=== PATIENT | male | born 1955 | race Caucasian/White ===

== ENCOUNTER → 2017-10-28 | Day surgery (SDC) | payer OTHER ==
[2017-10-21 07:42] VITALS: Ht 180.3 cm; Wt 109.1 kg
--- NOTE | 2017-10-26 09:24 | History and Physical: Surg Cnt ---
History & Physical Date Oct 26, 2017. Chief Complaint ulceration right ear History of Present Illness The patient is a 61 year old male with complaints of non healing ulceration of helix of right ear Past Medical/Surgical History Medical Problems: (1) Altered mental status (2) Depression (3) GERD (gastroesophageal reflux disease) (4) HTN (hypertension) (5) Hyponatremia (6) Seizure disorder Surgical Problems: (1) Previous back surgery Additional History Hepatic Disease: No Endocrine Disorder: No Kidney Disease: Yes Hypertension: Yes Heart Disease: No Bleeding Tendencies: No Infectious Diseases: No Allergies Coded Allergies: Penicillins (Verified Allergy, Severe, ANAPHYLAXIS, 10/21/17) Hydrochlorothiazide (Verified Adverse Reaction, Unknown, HYPONATREMIA, ) Home Medications Scheduled Amlodipine (Norvasc), 5 MG PO QAM Buspirone Hcl (Buspirone Hcl), 10 MG PO QPM Buspirone Hcl (Buspar), 15 MG PO QAM Calcium Carbonate (Calcium Carbonate), 1 TAB PO BID Carvedilol (Coreg), 12.5 MG PO BID Divalproex Sodium (Depakote), 1 TAB PO QAM Doxepin Hcl (Doxepin), 100 MG PO QPM Magnesium Oxide (Mag-Ox), 400 MG PO BID Meloxicam (Mobic), 15 MG PO QAM Metoprolol Tartrate (Lopressor) (Lopressor), 50 MG PO BID Pantoprazole (Protonix), 20 MG PO BID Polyethylene Glycol 3350 (Glycolax), 17 GM PO DAILY Pravastatin Sod (Pravastatin Sodium), 1 TAB PO QPM Triamcinolone Acet (Triamcinolone Acetonide), 1 DOSE EXT BID Scheduled PRN Tcoziqnmyd-Vhwaclzneketn-Imwgp (Fioricet), 2 CAP PO BID PRN for Migraine Physical Examination Skin: warm/dry, no rash Eyes: normal inspection, EOMI, sclerae normal ENT: + pertinent finding (ulceration right helix) Head: normocephalic, atraumatic Neck: supple, no adenopathy, trachea midline Respiratory/Chest: lungs clear, normal breath sounds, no respiratory distress Cardiovascular: regular rate, rhythm Abdomen / GI: normal bowel sounds Back: normal inspection Extremities: normal inspection Neurologic/Psych: no motor/sensory deficits, oriented x 3 Diagnosis ulceration right helix ASA Classification: ASA Class I Plan of Treatment excision right ear ulcer
[~2017-10-28] VITALS: Ht 180.3 cm; Wt 109.1 kg
[~2017-10-28] MED LIST: AMLO-110 PO; BUSP-8 PO; BUSP15TA70 PO; BUTA1CAP17 PO; CALC12504 PO; CARV12.52 PO; DIVA500T59 PO; DOXE100C4 PO; LIDO 2%/EPINEPHRINE 1:100000 20 ML VIAL INFIL ONE; MAGN400T6 PO; MELO-84 PO; METO50TA16 PO; PRT/20 PO; PRVC/40 PO; TRIA0.5C4 EXT; [UNRECOGNIZED DRUG - CODE] PO
--- NOTE | 2017-10-28 11:16 | History & Physical Bridge Note ---
H&P Re-Evaluation Bridge Note: I have examined the patient, reviewed the History & Physical and in the interval since the performance of the History & Physical I have noted the following changes of clinical significance: ASA 2. No changes noted
--- NOTE | 2017-10-28 13:17 | [facility] Post Operative Brief Note ---
Immediate Operative Summary Operative Date Oct 28, 2017. Pre-Operative Diagnosis Right Ear [place] Ulceration Post-Operative Diagnosis Right Ear Chondrodermatitis Procedure(s) Performed Right Ear Ulcer Excision Surgeon Dr Bartholomew Credit Checker Surgeon(s) none Estimated Blood Loss 5ml Findings See Below ulcer consistent with chondrodermatitis Specimens A)Chondrodermatitis of the Right Ear Drains None Anesthesia Type Local Complication(s) none Disposition Accompanied Pt To Recovery: yes Disposition:
[2017-10-28 13:18] VITALS: TEMP 37.2
--- NOTE | 2017-10-28 13:23 | [facility] Operative Report ---
Operative Report Operative Date Oct 28, 2017. Pre-Operative Diagnosis Right Ear [place] Ulceration Post-Operative Diagnosis Right Ear Chondrodermatitis Procedure(s) Performed Right Ear Ulcer Excision Surgeon Dr Bartholomew [place] Slabs Sawyer Surgeon(s) none Estimated Blood Loss 5ml Findings ulcer consistent with chondrodermatitis Specimens A)Chondrodermatitis of the Right Ear Drains None Anesthesia Type Local Complication(s) none Disposition no Indications 61-year-old male with recurrent swelling and tenderness and ulceration of the helix of the right ear. This appears to be consistent with chondrodermatitis. Description of Procedure The patient was brought to the operating room placed in the supine position. Local anesthesia was obtained after prepping with Betadine paint by injecting with 2% Xylocaine with 1 100,000 strength epinephrine. The ulceration was at the right helix. The excision was performed using the 15 blade excising and an elliptical shaped piece of skin including the ulceration and the underlying cartilage. Hemostasis was noted to be good. The incision was closed with interrupted 4-0 nylon sutures. The patient tolerated procedure well was taken to recovery area in satisfactory condition. I attest to the content of the Intraoperative Record and any orders documented therein. Any exceptions are noted below.
--- NOTE | 2017-10-28 13:26 | Discharge Instructions-SurgCtr ---
Discharge Instructions Date of Service Oct 28, 2017. Visit Reason for Visit: Right Ear [place] Ulceration Discharge Discharge Diagnosis / Problem: Chondrodermatitis Discharge Goals Goal(s): Diagnostic testing Activity Recommendations Activity Limitations: resume your previous activity Anesthesia . Post Anesthesia Instructions: If you have had General Anesthesia or IV Sedation: * Do not drive today. * Resume driving when surgeon permits. * Do not make important decisions or sign legal documents today. * Call surgeon for: 1. Temperature elevations greater than 101 degrees F. 2. Uncontrollable pain. 3. Excessive bleeding. 4. Persistent nausea and vomiting. 5. Medication intolerance (nausea, vomiting or rash). * For nausea and vomiting use only clear liquids such as: tea, soda, bouillon until nausea subsides, then gradually increase diet as tolerated. * If you have any concerns or questions, call your surgeon's office. If physician is unavailable and it is an emergency, call 911 or go to the nearest emergency room. . Instructions / Follow-Up Instructions / Follow-Up Please apply bacitracin to the incision line twice a day. Please remove sutures in 1 week. If the biopsy is consistent with chondrodermatitis and or benign, the patient does not need to see me. If the biopsy shows basal cell carcinoma with clear margins the patient will need to have a recheck in 6 months. If there is basal cell carcinoma with involvement of the margins the patient will need reexcision. Diet Recommendations Home Diet: no limitations Procedures Procedures Performed: Right Ear Ulcer Excision Pending Studies Studies pending at discharge: yes List of pending studies: Biopsy Medical Emergencies . Who to Call and When: Medical Emergencies: If at any time you feel your situation is an emergency, please call 911 immediately. . Non-Emergent Contact Non-Emergency issues call your: Primary Care Provider . . "Provider Documentation" section prepared by Shania Bartholomew. . [place] Drug Monitoring Program Search Results: no issues identified
[2017-10-28 13:44] VITALS: BP 154/101; PULSE 64; O2SAT 95
== END | disposition home or self-care (01) ==
LOC: X.SURG 10:48
PROVIDERS: ATTEND Otolaryngology
DX: H61.021 Chronic perichondritis of right external ear (principal); K21.9 Gastro-esophageal reflux disease without esophagitis; I10 Essential (primary) hypertension; F32.9 Major depressive disorder, single episode, unspecified; G40.909 Epilepsy, unspecified, not intractable, without status epilepticus; Z88.0 Allergy status to penicillin; Z88.8 Allergy status to other drugs, medicaments and biological substances